=== PATIENT | male | born 1995 | race Caucasian/White ===

== ENCOUNTER 2020-11-18 20:28 | Emergency (ER) | payer SELFPAY ==
--- NOTE | 2020-11-18 20:56 | Emergency Department Report ---
ED General Adult HPI - General Chief complaint: Dental/Oral Stated complaint: TOOTHACE PAINS Time Seen by Provider: 11/18/20 20:44 Source: patient Mode of arrival: Ambulatory Limitations: No Limitations - History of Present Illness Initial comments: 25-year-old male patient presents with complaints of left lower dental pain x1 week. He rates his pain is 8/10 in severity and states Tylenol is not helping. He denies any fever/chills/sweats, difficulty opening his jaw, or facial swelling. Pain worsens with eating and to touch per patient. He denies any past medical history - Related Data Previous Rx's Medication Instructions Recorded Last Taken Type Acetaminophen/Codeine [Tylenol 1 tab PO Q8H PRN #8 tab 11/18/20 Unknown Rx /Codeine # 3 tab] Ibuprofen [Motrin 800 MG tab] 800 mg PO Q8HR PRN #20 tablet 11/18/20 Unknown Rx Penicillin V Potassium 500 mg PO QID 7 Days #21 tablet 11/18/20 Unknown Rx ED Review of Systems ROS: Stated complaint: TOOTHACE PAINS Other details as noted in HPI Constitutional: denies: chills, fever, malaise ENT: dental pain. denies: throat pain Respiratory: denies: cough, shortness of breath Cardiovascular: denies: chest pain Skin: denies: rash, change in color Neurological: denies: headache Hematological/Lymphatic: denies: swollen glands ED Past Medical Hx - Past Medical History Previous Medical History?: No - Surgical History Past Surgical History?: No - Social History Smoking Status: Current Every Day Smoker Substance Use Type: None - Medications Home Medications: Home Medications Medication Instructions Recorded Confirmed Last Taken Type Acetaminophen/Codeine [Tylenol 1 tab PO Q8H PRN #8 tab 11/18/20 Unknown Rx /Codeine # 3 tab] Ibuprofen [Motrin 800 MG tab] 800 mg PO Q8HR PRN #20 tablet 11/18/20 Unknown Rx Penicillin V Potassium 500 mg PO QID 7 Days #21 tablet 11/18/20 Unknown Rx ED Physical Exam - General Limitations: No Limitations General appearance: alert, in no apparent distress - Head Head exam: Present: atraumatic, normocephalic - Eye Eye exam: Present: normal appearance - ENT ENT exam: Present: mucous membranes moist - Expanded ENT Exam Expanded 1 - Dental Tenderness (Mild dental caries noted with mild erythema of the gums, no obvious abscess noted, no overlying facial swelling or cellulitis noted) - Neck Neck exam: Present: normal inspection. Absent: lymphadenopathy - Respiratory Respiratory exam: Absent: respiratory distress - Cardiovascular Cardiovascular Exam: Present: regular rate - Neurological Exam Neurological exam: Present: alert, oriented X3 - Psychiatric Psychiatric exam: Present: normal affect, normal mood - Skin Skin exam: Present: warm, dry, intact, normal color. Absent: rash, erythema ED Course Vital Signs 11/18/20 20:32 Temperature 98.3 F Pulse Rate 90 Respiratory 16 Rate O2 Sat by Pulse 96 Oximetry ED Medical Decision Making - Medical Decision Making 25-year-old male patient presents with complaints of left lower dental pain x1 week. He rates his pain is 8/10 in severity and states Tylenol is not helping. He denies any fever/chills/sweats, difficulty opening his jaw, or facial swelling. Pain worsens with eating and to touch per patient. He denies any past medical history Will treat with penicillin. Recommend follow-up with dental specialist-clinic list provided to patient. Patient to follow-up on Friday. Symptoms that should prompt immediate return to the emergency department detail with patient verbalized understanding. He is well-appearing and stable for discharge home. Critical care attestation.: If time is entered above; I have spent that time in minutes in the direct care of this critically ill patient, excluding procedure time. ED Disposition Clinical Impression: Dental infection Disposition: [id number] TO HOME OR SELFCARE Is pt being admited?: No Condition: Stable Instructions: Dental Abscess Additional Instructions: Please follow-up with a dental specialist from the list provided on Friday10/21/2020 Prescriptions: Ibuprofen [Motrin 800 MG tab] 800 mg PO Q8HR PRN #20 tablet PRN Reason: pain Penicillin V Potassium 500 mg PO QID 7 Days #21 tablet Acetaminophen/Codeine [Tylenol /Codeine # 3 tab] 1 tab PO Q8H PRN #8 tab PRN Reason: Pain , Severe (7-10)
[2020-11-18] MEDS ORDERED: IBUPROFEN 800 MG TAB PO ONE (21:00)
== END 2020-11-18 21:45 | disposition home or self-care (01) ==
LOC: ED 20:28
DX: K04.7 Periapical abscess without sinus (principal); F17.200 Nicotine dependence, unspecified, uncomplicated; Z79.899 Other long term (current) drug therapy
CPT/HCPCS: 99282